=== PATIENT | male | born 1970 | race Hispanic/Latino ===

== ENCOUNTER → 2016-08-22 | Outpatient (CLI) | payer OTHER, BC ==
--- NOTE | 2016-08-22 09:01 | EKG ---
[address] [address] Measurements Intervals [place] Rate: 44 P: 57 OR: 185 QRS: 2 QRSD: 106 T: 2 QT: 449 QTc: 401 Interpretive Statements SINUS BRADYCARDIA POSSIBLE RIGHT VENTRICULAR CONDUCTION DELAY No previous ECG available for comparison Electronically Signed On 08-22-16 15:20:58 MST by Gamal Mcqueen [email or web address]
--- NOTE | 2016-08-22 09:25 | DI ---
PA /LATERAL CHEST X-RAY, 08/22/2016 8:46 AM : Clinical History: Smoker. Previous Exam: None at this facility. There is no acute soft tissue or bony abnormality. Heart size is normal. Lungs are clear. Mediastinal structures are normal. There are no pulmonary nodules. Reading: Normal chest x-ray.
== END ==
LOC: EKG 08:09
PROVIDERS: ATTEND Family Medicine
DX: Z02.1 Encounter for pre-employment examination (principal); R00.1 Bradycardia, unspecified
CPT/HCPCS: 71020; 93005; 93010